=== PATIENT | male | born 1985 | race Caucasian/White ===

== ENCOUNTER 2022-03-28 20:37 | Inpatient (IN) | payer MEDICAID ==
[~2022-03-28] VITALS: Ht 180.3 cm; Wt 105.8 kg
[2022-03-28 21:14] LABS: BASOPHILS % (AUTO) 0.3 % (0.0-2.0); EOSINOPHILS % (AUTO) 1.1 % (1.0-6.0); HEMATOCRIT 38.5 % (41-53); HEMOGLOBIN 13.3 g/dL (13.5-17.5); LYMPHOCYTES # (AUTO) 1.5 K/uL (1.0-4.8); LYMPHOCYTES % (AUTO) 24.2 % (22.0-44.0); MEAN CORPUSCULAR HEMOGLOBIN 29.8 pg (26.0-34.0); MEAN CORPUSCULAR HGB CONC 34.5 G/dL (31.0-37.0); MEAN CORPUSCULAR VOLUME 86 fL (80-100); MONOCYTES # (AUTO) 0.3 K/uL (0.1-1.0); MONOCYTES % (AUTO) 5.3 % (2.0-9.0); NEUTROPHILS # (AUTO) 4.3 K/uL (1.8-7.7); NEUTROPHILS % (AUTO) 69.1 % (40.0-70.0); PLATELET COUNT (AUTO) 211 K/uL (150-450); RED BLOOD CELL COUNT(AUTO) 4.47 MIL/uL (4.50-5.90); RED CELL DISTRIBUTION WIDTH 13.5 % (11.5-14.5)
[2022-03-28 21:17] LABS: COVID AG,FIA SOURCE NASAL SWAB
[2022-03-28 21:24] LABS: ANION GAP 7 mmol/L (8-16); CALCIUM, TOTAL 8.5 mg/dL (8.8-10.5); CARBON DIOXIDE 32 mmol/L (22-29); CHLORIDE 106 mmol/L (98-107); CREATININE 0.99 mg/dL (0.60-1.30); GLOMERULAR FILTR. RATE CALC > 60 mL/min (>60); GLUCOSE,RANDOM 120 mg/dL (70-110); POTASSIUM 3.1 mmol/L (3.5-5.1); SODIUM SERUM 145 mmol/L (136-145); UREA NITROGEN, BLOOD 16 mg/dL (7-18)
[2022-03-28 21:30] LABS: ALANINE AMINOTRANSFERASE 99 U/L (12-78); ALBUMIN 3.5 g/dL (3.4-5.0); ALKALINE PHOSPHATASE 87 U/L (46-116); ASPARTATE AMINOTRANSFERASE 75 U/L (15-37); BILIRUBIN,TOTAL 0.5 mg/dL (0.1-1.0); TOTAL PROTEIN, SERUM 6.8 g/dL (6.4-8.2)
[2022-03-28] MEDS ORDERED: POTASSIUM CHLORIDE 20 MEQ ER TABLET PO ONE (22:15)
[2022-03-28] MEDS ORDERED: LORazepam 1 MG TABLET PO ONE (22:30)
[2022-03-29 03:15] VITALS: BP 128/67
[2022-03-29 08:07] VITALS: BP 120/66
[2022-03-29] MEDS: HALOPERIDOL 5 MG TABLET PO PRN ×2 (10:15→16:51)
[2022-03-29] MEDS: LORazepam 2 MG TABLET PO PRN ×2 (10:15→16:51)
[2022-03-29] MEDS ORDERED: LOPERAMIDE HCL 2 MG CAPSULE PO PRN (12:45)
[2022-03-29] MEDS ORDERED: MAGNESIUM HYDROXIDE SUSPENSION 30 ML UDCUP PO PRN (12:45)
[2022-03-29] MEDS ORDERED: ONDANSETRON HCL 4 MG TABLET PO PRN (12:45)
[2022-03-29] MEDS ORDERED: DOCUSATE SODIUM 100 MG CAPSULE PO PRN (12:45)
[2022-03-29] MEDS ORDERED: ACETAMINOPHEN 325 MG TABLET PO PRN (12:45)
[2022-03-29] MEDS ORDERED: CloNIDine HCL 0.1 MG TABLET PO PRN (12:45)
[2022-03-29] MEDS ORDERED: ALBUTEROL SULFATE HFA 90 MCG/PUFF 8 GM INHALER IH PRN (12:45)
[2022-03-29] MEDS ORDERED: MAG HYDROX/AL HYDROX/SIMETH ES 30 ML SUSPENSION UDCUP PO PRN (12:45)
[2022-03-29] MEDS ORDERED: GuaiFENesin/D-METHORPHAN [SUGAR-FREE] 200-20MG/10 ML SYRUP UDCUP PO PRN (12:45)
[2022-03-29] MEDS ORDERED: IBUPROFEN 400 MG TABLET PO PRN (12:45)
[2022-03-29] MEDS ORDERED: PETROLATUM,WHITE 28 GM JELLY TP PRN (12:45)
[2022-03-29 16:08] VITALS: BP 118/66
[2022-03-29] MEDS: OLANZapine 5 MG TABLET PO SCH (16:51)
[2022-03-30] MEDS: OLANZapine 5 MG TABLET PO SCH ×2 (08:09→16:26)
[2022-03-30] MEDS: LORazepam 2 MG TABLET PO PRN ×3 (08:09→20:31)
[2022-03-30 08:16] VITALS: BP 126/78
[2022-03-30 16:16] VITALS: BP 128/73
[2022-03-30] MEDS: NICOTINE 14 MG/24 HOUR PATCH TD PRN (17:56)
[2022-03-30] MEDS: ZOLPIDEM TARTRATE 10 MG TABLET PO PRN (20:31)
[2022-03-30] MEDS: HALOPERIDOL 5 MG TABLET PO PRN (21:59)
[2022-03-31 08:09] VITALS: BP 133/73
[2022-03-31] MEDS: OLANZapine 5 MG TABLET PO SCH ×2 (08:19→18:08)
[2022-03-31] MEDS: HALOPERIDOL 5 MG TABLET PO PRN ×2 (08:19→18:41)
[2022-03-31] MEDS: LORazepam 2 MG TABLET PO PRN ×3 (08:19→18:08)
[2022-03-31] MEDS: NICOTINE 14 MG/24 HOUR PATCH TD PRN (08:42)
[2022-03-31 16:11] VITALS: BP 130/76
[2022-04-01 04:57] VITALS: BP 114/64
[2022-04-01 08:06] VITALS: BP 133/80
[2022-04-01] MEDS: OLANZapine 5 MG TABLET PO SCH ×2 (08:16→16:31)
[2022-04-01] MEDS: HALOPERIDOL 5 MG TABLET PO PRN ×3 (08:16→19:12)
[2022-04-01] MEDS: LORazepam 2 MG TABLET PO PRN ×3 (08:16→19:12)
[2022-04-01 16:10] VITALS: BP 132/76
[2022-04-01] MEDS: ZOLPIDEM TARTRATE 10 MG TABLET PO PRN (20:14)
[2022-04-02] MEDS: HALOPERIDOL 5 MG TABLET PO PRN ×2 (08:15→18:08)
[2022-04-02] MEDS: OLANZapine 5 MG TABLET PO SCH ×2 (08:15→17:07)
[2022-04-02] MEDS: LORazepam 2 MG TABLET PO PRN ×2 (08:15→18:08)
[2022-04-02 08:28] VITALS: BP 114/70
[2022-04-02] MEDS ORDERED: HALOPERIDOL LACTATE 5 MG/ML VIAL ONE (14:26)
[2022-04-02] MEDS ORDERED: DiphenhydrAMINE HCL 50 MG/ML VIAL ONE (14:26)
[2022-04-02] MEDS ORDERED: LORazepam 2 MG/ML VIAL ONE (14:26)
[2022-04-02] MEDS ORDERED: DiphenhydrAMINE HCL 50 MG/ML VIAL IM ONE (14:30)
[2022-04-02] MEDS ORDERED: LORazepam 2 MG/ML VIAL IM ONE (14:30)
[2022-04-02] MEDS ORDERED: HALOPERIDOL LACTATE 5 MG/ML VIAL IM ONE (14:30)
[2022-04-02 16:07] VITALS: BP 140/88
[2022-04-02] MEDS: ZOLPIDEM TARTRATE 10 MG TABLET PO PRN (20:28)
[2022-04-03 08:10] VITALS: BP 136/79
[2022-04-03] MEDS: OLANZapine 5 MG TABLET PO SCH ×2 (08:47→16:50)
[2022-04-03] MEDS: LORazepam 2 MG TABLET PO PRN ×3 (08:48→23:44)
[2022-04-03] MEDS: HALOPERIDOL 5 MG TABLET PO PRN ×3 (11:35→23:44)
[2022-04-03] MEDS: NICOTINE 14 MG/24 HOUR PATCH TD PRN (11:35)
[2022-04-03] MEDS: NICOTINE 21 MG/24 HOUR PATCH TD SCH (14:52)
[2022-04-03 16:08] VITALS: BP 104/61
[2022-04-03] MEDS: ZOLPIDEM TARTRATE 10 MG TABLET PO PRN (20:06)
[2022-04-04 00:43] VITALS: BP 114/71
[2022-04-04 08:22] VITALS: BP 154/94
[2022-04-04] MEDS: HALOPERIDOL 5 MG TABLET PO PRN ×2 (08:23→16:42)
[2022-04-04] MEDS: NICOTINE 21 MG/24 HOUR PATCH TD SCH (08:23)
[2022-04-04] MEDS: OLANZapine 5 MG TABLET PO SCH ×2 (08:23→16:42)
[2022-04-04] MEDS: LORazepam 2 MG TABLET PO PRN ×2 (08:24→16:42)
[2022-04-04] MEDS ORDERED: DiphenhydrAMINE HCL 50 MG/ML VIAL IM ONE (11:30)
[2022-04-04] MEDS ORDERED: HALOPERIDOL LACTATE 5 MG/ML VIAL IM ONE (11:30)
[2022-04-04] MEDS ORDERED: DiphenhydrAMINE HCL 50 MG/ML VIAL ONE (11:30)
[2022-04-04] MEDS ORDERED: LORazepam 2 MG/ML VIAL ONE (11:30)
[2022-04-04] MEDS ORDERED: LORazepam 2 MG/ML VIAL IM ONE (11:30)
[2022-04-04] MEDS ORDERED: HALOPERIDOL LACTATE 5 MG/ML VIAL ONE (11:30)
[2022-04-04 13:26] VITALS: BP 113/75
[2022-04-04 15:56] VITALS: BP 122/69
[2022-04-04 17:54] VITALS: BP 122/69
[2022-04-05 08:12] VITALS: BP 128/68
[2022-04-05] MEDS: OLANZapine 5 MG TABLET PO SCH ×2 (08:16→16:01)
[2022-04-05] MEDS: NICOTINE 21 MG/24 HOUR PATCH TD SCH (08:16)
[2022-04-05] MEDS: HALOPERIDOL 5 MG TABLET PO PRN ×3 (08:16→20:13)
[2022-04-05] MEDS: LORazepam 2 MG TABLET PO PRN ×3 (08:16→20:13)
[2022-04-05 16:09] VITALS: BP 127/75
[2022-04-05] MEDS: ZOLPIDEM TARTRATE 10 MG TABLET PO PRN (20:13)
[2022-04-06 03:23] VITALS: BP 110/72
[2022-04-06 08:17] VITALS: BP 108/70
[2022-04-06] MEDS: OLANZapine 5 MG TABLET PO SCH ×2 (08:17→16:26)
[2022-04-06] MEDS: LORazepam 2 MG TABLET PO PRN ×2 (08:17→13:38)
[2022-04-06] MEDS: HALOPERIDOL 5 MG TABLET PO PRN ×2 (08:17→13:38)
[2022-04-06] MEDS: NICOTINE 21 MG/24 HOUR PATCH TD SCH (08:17)
[2022-04-06 16:14] VITALS: BP 117/62
[2022-04-06] MEDS ORDERED: HALOPERIDOL LACTATE 5 MG/ML VIAL IM ONE (18:15)
[2022-04-06] MEDS ORDERED: LORazepam 2 MG/ML VIAL IM ONE (18:15)
[2022-04-06] MEDS ORDERED: DiphenhydrAMINE HCL 50 MG/ML VIAL IM ONE (18:15)
[2022-04-06] MEDS: ZOLPIDEM TARTRATE 10 MG TABLET PO PRN (20:22)
[2022-04-06] MEDS: NICOTINE POLACRILEX 2 MG LOZENGE PO PRN (20:40)
[2022-04-07 06:18] VITALS: BP 128/72
[2022-04-07 08:21] VITALS: BP 118/74
[2022-04-07] MEDS: OLANZapine 5 MG TABLET PO SCH ×2 (08:41→16:14)
[2022-04-07] MEDS: NICOTINE POLACRILEX 2 MG LOZENGE PO PRN ×2 (12:29→16:14)
[2022-04-07] MEDS: LORazepam 2 MG TABLET PO PRN (13:42)
[2022-04-07 16:17] VITALS: BP 140/96
[2022-04-07] MEDS ORDERED: OLAN5TAB52 PO (17:11)
== END 2022-04-07 18:30 | disposition home or self-care (01) | DRG 750 ==
LOC: EMS 20:39 → B3A 03-29 01:48
PROVIDERS: ADMIT Psychiatry & Neurology Child & Adolescent Psychiatry; ATTEND Psychiatry & Neurology Child & Adolescent Psychiatry
DX: F20.0 Paranoid schizophrenia (principal); R45.851 Suicidal ideations; Z59.01 Sheltered homelessness; E87.6 Hypokalemia; F32.A Depression, unspecified; F41.9 Anxiety disorder, unspecified; R73.9 Hyperglycemia, unspecified; Z20.822 Contact with and (suspected) exposure to COVID-19; F17.210 Nicotine dependence, cigarettes, uncomplicated; D64.9 Anemia, unspecified
CPT/HCPCS: 80053; 85025; 99285; G0480; J1200; J1630; J2060; Q9967

== ENCOUNTER 2022-04-20 16:04 | Inpatient (IN) | payer MEDICAID ==
[~2022-04-20] VITALS: Ht 180.3 cm; Wt 109.4 kg
[~2022-04-20 16:04] MED LIST: OLAN5TAB52 PO
[2022-04-20] MEDS: LORazepam 2 MG TABLET PO PRN (20:47)
[2022-04-20] MEDS: ZOLPIDEM TARTRATE 10 MG TABLET PO PRN (20:47)
[2022-04-20 22:06] VITALS: BP 140/100
[2022-04-21 04:22] VITALS: BP 132/89
[2022-04-21] MEDS ORDERED: MAG HYDROX/AL HYDROX/SIMETH ES 30 ML SUSPENSION UDCUP PO PRN (06:45)
[2022-04-21] MEDS ORDERED: ONDANSETRON HCL 4 MG TABLET PO PRN (06:45)
[2022-04-21] MEDS ORDERED: GuaiFENesin/D-METHORPHAN [SUGAR-FREE] 200-20MG/10 ML SYRUP UDCUP PO PRN (06:45)
[2022-04-21] MEDS ORDERED: PETROLATUM,WHITE 28 GM JELLY TP PRN (06:45)
[2022-04-21] MEDS ORDERED: DOCUSATE SODIUM 100 MG CAPSULE PO PRN (06:45)
[2022-04-21] MEDS ORDERED: ACETAMINOPHEN 325 MG TABLET PO PRN (06:45)
[2022-04-21] MEDS ORDERED: ALBUTEROL SULFATE HFA 90 MCG/PUFF 8 GM INHALER IH PRN (06:45)
[2022-04-21] MEDS ORDERED: LOPERAMIDE HCL 2 MG CAPSULE PO PRN (06:45)
[2022-04-21] MEDS ORDERED: CloNIDine HCL 0.1 MG TABLET PO PRN (06:45)
[2022-04-21 08:20] VITALS: BP 111/60
[2022-04-21] MEDS: HALOPERIDOL 5 MG TABLET PO PRN (12:10)
[2022-04-21] MEDS: LORazepam 2 MG TABLET PO PRN ×2 (12:10→19:19)
[2022-04-21 16:30] VITALS: BP 146/75
[2022-04-21] MEDS: OLANZapine 5 MG TABLET PO SCH (19:19)
[2022-04-22 04:17] VITALS: BP 106/64
[2022-04-22 08:07] VITALS: BP 122/70
[2022-04-22] MEDS: OLANZapine 5 MG TABLET PO SCH ×2 (09:07→16:07)
[2022-04-22] MEDS: LORazepam 2 MG TABLET PO PRN ×2 (09:07→16:07)
[2022-04-22 16:05] VITALS: BP 130/82
[2022-04-22] MEDS: HALOPERIDOL 5 MG TABLET PO PRN (17:22)
[2022-04-22] MEDS: NICOTINE 14 MG/24 HOUR PATCH TD PRN (18:00)
[2022-04-23 05:50] VITALS: BP 126/81
[2022-04-23 08:15] VITALS: BP 128/80
[2022-04-23] MEDS: HALOPERIDOL 5 MG TABLET PO PRN ×3 (08:20→17:13)
[2022-04-23] MEDS: OLANZapine 5 MG TABLET PO SCH ×2 (08:20→16:13)
[2022-04-23] MEDS: LORazepam 2 MG TABLET PO PRN ×3 (08:20→17:13)
[2022-04-23] MEDS: NICOTINE 14 MG/24 HOUR PATCH TD PRN (12:58)
[2022-04-23] MEDS ORDERED: DiphenhydrAMINE HCL 50 MG/ML VIAL IM ONE (16:00)
[2022-04-23] MEDS ORDERED: ChlorproMAZINE HCL 50 MG/2 ML AMP IM ONE (16:00)
[2022-04-23 16:07] VITALS: BP 137/76
[2022-04-24] MEDS: OLANZapine 5 MG TABLET PO SCH ×2 (08:03→16:28)
[2022-04-24 08:18] VITALS: BP 115/68
[2022-04-24] MEDS: LORazepam 2 MG TABLET PO PRN ×2 (10:04→16:28)
[2022-04-24] MEDS: HALOPERIDOL 5 MG TABLET PO PRN (14:00)
[2022-04-24 16:02] VITALS: BP 128/82
[2022-04-24] MEDS: NICOTINE 14 MG/24 HOUR PATCH TD PRN (18:33)
[2022-04-24] MEDS ORDERED: LORazepam 2 MG/ML VIAL IM ONE (19:45)
[2022-04-24] MEDS ORDERED: ChlorproMAZINE HCL 50 MG/2 ML AMP IM ONE (19:45)
[2022-04-24] MEDS ORDERED: DiphenhydrAMINE HCL 50 MG/ML VIAL IM ONE (19:45)
[2022-04-24] MEDS: ZOLPIDEM TARTRATE 10 MG TABLET PO PRN (22:23)
[2022-04-25 03:30] VITALS: BP 139/96
[2022-04-25 08:03] VITALS: BP 123/88
[2022-04-25] MEDS: OLANZapine 5 MG TABLET PO SCH (09:10)
[2022-04-25] MEDS: LORazepam 2 MG TABLET PO PRN ×2 (09:11→15:16)
[2022-04-25] MEDS ORDERED: OLANZapine 5 MG RAPDIS TABLET PO ONE (09:45)
[2022-04-25] MEDS ORDERED: OLANZapine 10 MG TABLET PO SCH (09:45)
[2022-04-25] MEDS: SERTRALINE HCL 50 MG TABLET PO SCH (10:01)
[2022-04-25] MEDS: NICOTINE 14 MG/24 HOUR PATCH TD PRN (11:03)
[2022-04-25] MEDS: HALOPERIDOL 5 MG TABLET PO PRN (15:16)
[2022-04-25 16:22] VITALS: BP 133/88
[2022-04-25] MEDS: OLANZapine 10 MG TABLET PO SCH (20:44)
[2022-04-26 02:41] VITALS: BP 132/68
[2022-04-26 08:07] VITALS: BP 118/72
[2022-04-26] MEDS: SERTRALINE HCL 50 MG TABLET PO SCH (08:09)
[2022-04-26] MEDS: LORazepam 2 MG TABLET PO PRN ×2 (08:09→16:56)
[2022-04-26] MEDS: HALOPERIDOL 5 MG TABLET PO PRN ×2 (08:09→16:56)
[2022-04-26] MEDS: OLANZapine 10 MG TABLET PO SCH ×2 (08:10→16:56)
[2022-04-26 16:14] VITALS: BP 112/82
[2022-04-27 04:32] VITALS: BP 128/76
[2022-04-27 08:05] VITALS: BP 138/92
[2022-04-27] MEDS: LORazepam 2 MG TABLET PO PRN ×3 (08:15→22:09)
[2022-04-27] MEDS: HALOPERIDOL 5 MG TABLET PO PRN ×2 (08:15→16:07)
[2022-04-27] MEDS: OLANZapine 10 MG TABLET PO SCH ×2 (08:15→16:07)
[2022-04-27] MEDS: SERTRALINE HCL 50 MG TABLET PO SCH (08:15)
[2022-04-27] MEDS: NICOTINE 14 MG/24 HOUR PATCH TD PRN (09:27)
[2022-04-27] MEDS ORDERED: ChlorproMAZINE HCL 50 MG/2 ML AMP ONE (11:28)
[2022-04-27] MEDS ORDERED: DiphenhydrAMINE HCL 50 MG/ML VIAL ONE (11:28)
[2022-04-27] MEDS ORDERED: ChlorproMAZINE HCL 50 MG/2 ML AMP IM ONE (11:30)
[2022-04-27] MEDS ORDERED: DiphenhydrAMINE HCL 50 MG/ML VIAL IM ONE (11:30)
[2022-04-27 16:06] VITALS: BP 124/78
[2022-04-27] MEDS: NICOTINE POLACRILEX 2 MG LOZENGE PO PRN (19:40)
[2022-04-27] MEDS: ZOLPIDEM TARTRATE 10 MG TABLET PO PRN (20:36)
[2022-04-27 21:42] LABS: GLUCOMETER DEV NAME(LOC) POC.BV
[2022-04-28 06:00] VITALS: BP 118/70
[2022-04-28] MEDS: SERTRALINE HCL 50 MG TABLET PO SCH (08:28)
[2022-04-28] MEDS: HALOPERIDOL 5 MG TABLET PO PRN ×3 (08:28→20:14)
[2022-04-28] MEDS: LORazepam 2 MG TABLET PO PRN ×3 (08:28→20:15)
[2022-04-28] MEDS: OLANZapine 10 MG TABLET PO SCH ×2 (08:28→16:02)
[2022-04-28 09:03] VITALS: BP 110/61
[2022-04-28] MEDS: NICOTINE POLACRILEX 2 MG LOZENGE PO PRN (16:02)
[2022-04-28 16:03] VITALS: BP 129/85
[2022-04-28] MEDS: ZOLPIDEM TARTRATE 10 MG TABLET PO PRN (20:15)
[2022-04-29 06:49] VITALS: BP 124/78
[2022-04-29] MEDS: OLANZapine 10 MG TABLET PO SCH ×2 (08:32→16:16)
[2022-04-29] MEDS: SERTRALINE HCL 50 MG TABLET PO SCH (08:32)
[2022-04-29] MEDS: LORazepam 2 MG TABLET PO PRN ×3 (08:32→19:34)
[2022-04-29] MEDS: NICOTINE POLACRILEX 2 MG LOZENGE PO PRN ×2 (08:45→15:52)
[2022-04-29] MEDS: HALOPERIDOL 5 MG TABLET PO PRN ×2 (09:38→17:46)
[2022-04-29 16:16] VITALS: BP 140/89
[2022-04-29] MEDS: ZOLPIDEM TARTRATE 10 MG TABLET PO PRN (22:28)
[2022-04-30 05:12] VITALS: BP 103/64
[2022-04-30 08:02] VITALS: BP 133/62
[2022-04-30] MEDS: LORazepam 2 MG TABLET PO PRN ×2 (08:19→12:39)
[2022-04-30] MEDS: HALOPERIDOL 5 MG TABLET PO PRN ×2 (08:20→12:39)
[2022-04-30] MEDS: OLANZapine 10 MG TABLET PO SCH ×2 (08:20→16:12)
[2022-04-30] MEDS: SERTRALINE HCL 100 MG TABLET PO SCH (08:20)
[2022-04-30] MEDS ORDERED: HALOPERIDOL LACTATE 5 MG/ML VIAL IM ONE (13:30)
[2022-04-30] MEDS ORDERED: DiphenhydrAMINE HCL 50 MG/ML VIAL IM ONE (13:30)
[2022-04-30 16:04] VITALS: BP 127/75
[2022-04-30] MEDS: NICOTINE POLACRILEX 2 MG LOZENGE PO PRN (18:21)
[2022-04-30] MEDS: ZOLPIDEM TARTRATE 10 MG TABLET PO PRN (20:09)
[2022-05-01 06:23] VITALS: BP 131/82
[2022-05-01 07:12] LABS: BASOPHILS % (AUTO) 0.4 % (0.0-2.0); EOSINOPHILS % (AUTO) 1.7 % (1.0-6.0); HEMATOCRIT 42.4 % (41-53); HEMOGLOBIN 14.5 g/dL (13.5-17.5); LYMPHOCYTES # (AUTO) 1.9 K/uL (1.0-4.8); LYMPHOCYTES % (AUTO) 28.2 % (22.0-44.0); MEAN CORPUSCULAR HEMOGLOBIN 29.3 pg (26.0-34.0); MEAN CORPUSCULAR HGB CONC 34.1 G/dL (31.0-37.0); MEAN CORPUSCULAR VOLUME 86 fL (80-100); MONOCYTES # (AUTO) 0.5 K/uL (0.1-1.0); MONOCYTES % (AUTO) 7.2 % (2.0-9.0); NEUTROPHILS # (AUTO) 4.3 K/uL (1.8-7.7); NEUTROPHILS % (AUTO) 62.5 % (40.0-70.0); PLATELET COUNT (AUTO) 241 K/uL (150-450); RED BLOOD CELL COUNT(AUTO) 4.93 MIL/uL (4.50-5.90); RED CELL DISTRIBUTION WIDTH 13.4 % (11.5-14.5)
[2022-05-01 08:01] VITALS: BP 131/74
[2022-05-01] MEDS: HALOPERIDOL 5 MG TABLET PO PRN ×2 (08:07→17:13)
[2022-05-01] MEDS: OLANZapine 10 MG TABLET PO SCH ×2 (08:07→16:03)
[2022-05-01] MEDS: SERTRALINE HCL 100 MG TABLET PO SCH (08:07)
[2022-05-01] MEDS: LORazepam 2 MG TABLET PO PRN ×3 (08:07→18:29)
[2022-05-01] MEDS: NICOTINE POLACRILEX 2 MG LOZENGE PO PRN ×2 (10:24→19:11)
[2022-05-01 16:01] VITALS: BP 137/80
[2022-05-01] MEDS: ZOLPIDEM TARTRATE 10 MG TABLET PO PRN (21:55)
[2022-05-02 04:09] VITALS: BP 134/76
[2022-05-02 08:05] VITALS: BP 122/73
[2022-05-02] MEDS: OLANZapine 10 MG TABLET PO SCH ×2 (09:14→16:06)
[2022-05-02] MEDS: LORazepam 2 MG TABLET PO PRN ×2 (09:15→13:55)
[2022-05-02] MEDS: HALOPERIDOL 5 MG TABLET PO PRN ×2 (09:15→16:06)
[2022-05-02] MEDS: SERTRALINE HCL 100 MG TABLET PO SCH (09:16)
[2022-05-02] MEDS: NICOTINE POLACRILEX 2 MG LOZENGE PO PRN ×2 (10:53→17:11)
[2022-05-02 16:02] VITALS: BP 139/87
[2022-05-02] MEDS: ZOLPIDEM TARTRATE 10 MG TABLET PO PRN (20:27)
[2022-05-03 04:03] VITALS: BP 138/79
[2022-05-03] MEDS: OLANZapine 10 MG TABLET PO SCH ×2 (08:11→16:08)
[2022-05-03] MEDS: LORazepam 2 MG TABLET PO PRN (08:11)
[2022-05-03] MEDS: HALOPERIDOL 5 MG TABLET PO PRN ×4 (08:11→20:35)
[2022-05-03] MEDS: SERTRALINE HCL 100 MG TABLET PO SCH (08:11)
[2022-05-03 08:13] VITALS: BP 141/84
[2022-05-03] MEDS: NICOTINE POLACRILEX 2 MG LOZENGE PO PRN (12:32)
[2022-05-03] MEDS: HydrOXYzine PAMOATE 50 MG CAPSULE PO PRN ×2 (14:11→21:54)
[2022-05-03 16:20] VITALS: BP 130/83
[2022-05-03] MEDS: ZOLPIDEM TARTRATE 10 MG TABLET PO PRN (20:18)
[2022-05-04 03:58] VITALS: BP 136/87
[2022-05-04] MEDS: HydrOXYzine PAMOATE 50 MG CAPSULE PO PRN ×3 (06:58→19:16)
[2022-05-04] MEDS: HALOPERIDOL 5 MG TABLET PO PRN ×3 (06:58→19:16)
[2022-05-04 08:04] VITALS: BP 130/79
[2022-05-04] MEDS: SERTRALINE HCL 100 MG TABLET PO SCH (08:12)
[2022-05-04] MEDS: OLANZapine 10 MG TABLET PO SCH ×2 (08:12→16:00)
[2022-05-04 16:28] VITALS: BP 140/92
[2022-05-04] MEDS: NICOTINE POLACRILEX 2 MG LOZENGE PO PRN (17:31)
[2022-05-04] MEDS: ZOLPIDEM TARTRATE 10 MG TABLET PO PRN (20:44)
[2022-05-05 00:44] VITALS: BP 136/87
[2022-05-05] MEDS: SERTRALINE HCL 100 MG TABLET PO SCH (08:02)
[2022-05-05] MEDS: OLANZapine 10 MG TABLET PO SCH ×2 (08:02→16:11)
[2022-05-05 08:17] VITALS: BP 129/82
[2022-05-05] MEDS: HydrOXYzine PAMOATE 50 MG CAPSULE PO PRN ×3 (09:10→17:12)
[2022-05-05] MEDS: HALOPERIDOL 5 MG TABLET PO PRN ×3 (09:10→17:12)
[2022-05-05] MEDS: HYDROCORTISONE 1% 30 GM OINTMENT TP SCH (13:04)
[2022-05-05] MEDS: NICOTINE POLACRILEX 2 MG LOZENGE PO PRN (13:12)
[2022-05-05 16:04] VITALS: BP 140/85
[2022-05-05] MEDS: ZOLPIDEM TARTRATE 10 MG TABLET PO PRN (20:22)
[2022-05-06 03:39] VITALS: BP 134/81
[2022-05-06 08:11] VITALS: BP 153/82
[2022-05-06] MEDS: SERTRALINE HCL 100 MG TABLET PO SCH (08:31)
[2022-05-06] MEDS: HYDROCORTISONE 1% 30 GM OINTMENT TP SCH (08:32)
[2022-05-06] MEDS: HydrOXYzine PAMOATE 50 MG CAPSULE PO PRN ×2 (08:32→17:13)
[2022-05-06] MEDS: OLANZapine 10 MG TABLET PO SCH ×2 (08:59→17:00)
[2022-05-06] MEDS ORDERED: FUROSEMIDE 20 MG TABLET PO ONE (11:30)
[2022-05-06 16:44] VITALS: BP 134/78
[2022-05-06] MEDS: HALOPERIDOL 5 MG TABLET PO PRN (17:13)
[2022-05-06 19:01] VITALS: BP 162/98
[2022-05-06] MEDS: MAGNESIUM HYDROXIDE SUSPENSION 30 ML UDCUP PO PRN (19:24)
[2022-05-07 04:02] VITALS: BP 118/68
[2022-05-07] MEDS: OLANZapine 10 MG TABLET PO SCH ×2 (08:41→17:00)
[2022-05-07] MEDS: SERTRALINE HCL 100 MG TABLET PO SCH (08:41)
[2022-05-07] MEDS: HYDROCORTISONE 1% 30 GM OINTMENT TP SCH (08:45)
[2022-05-07 09:06] LABS: GLUCOMETER DEV NAME(LOC) POC.BV
[2022-05-07] MEDS: HydrOXYzine PAMOATE 50 MG CAPSULE PO PRN (10:05)
[2022-05-07 10:32] VITALS: BP 143/75
[2022-05-07] MEDS: NICOTINE POLACRILEX 2 MG LOZENGE PO PRN (16:05)
[2022-05-07 16:18] VITALS: BP 155/86
[2022-05-07] MEDS: IBUPROFEN 400 MG TABLET PO PRN (20:16)
[2022-05-07 20:23] VITALS: BP 143/85
[2022-05-07 21:16] VITALS: BP 138/82
[2022-05-08 00:32] VITALS: BP 148/81
[2022-05-08] MEDS: MAGNESIUM HYDROXIDE SUSPENSION 30 ML UDCUP PO PRN (07:12)
[2022-05-08 08:25] VITALS: BP 142/84
[2022-05-08] MEDS: SERTRALINE HCL 100 MG TABLET PO SCH (09:00)
[2022-05-08] MEDS: HYDROCORTISONE 1% 30 GM OINTMENT TP SCH (09:00)
[2022-05-08] MEDS: OLANZapine 10 MG TABLET PO SCH ×2 (09:00→16:35)
[2022-05-08] MEDS: NICOTINE POLACRILEX 2 MG LOZENGE PO PRN ×2 (13:23→19:26)
[2022-05-08 16:15] VITALS: BP 138/72
[2022-05-08] MEDS: ZOLPIDEM TARTRATE 10 MG TABLET PO PRN (23:46)
[2022-05-09 00:28] VITALS: BP 149/96
[2022-05-09 08:25] VITALS: BP 142/89
[2022-05-09] MEDS: SERTRALINE HCL 50 MG TABLET PO SCH (09:00)
[2022-05-09] MEDS: HYDROCORTISONE 1% 30 GM OINTMENT TP SCH (09:00)
[2022-05-09] MEDS: OLANZapine 10 MG TABLET PO SCH ×2 (09:00→17:00)
[2022-05-09] MEDS: IBUPROFEN 400 MG TABLET PO PRN (13:17)
[2022-05-09] MEDS: NICOTINE POLACRILEX 2 MG LOZENGE PO PRN ×2 (14:28→21:33)
[2022-05-09 16:22] VITALS: BP 140/83
[2022-05-09] MEDS: HydrOXYzine PAMOATE 50 MG CAPSULE PO PRN (16:39)
[2022-05-09] MEDS ORDERED: LORazepam 2 MG/ML VIAL IM ONE (20:30)
[2022-05-09] MEDS ORDERED: DiphenhydrAMINE HCL 50 MG/ML VIAL IM ONE (20:30)
[2022-05-09] MEDS ORDERED: HALOPERIDOL LACTATE 5 MG/ML VIAL IM ONE (20:30)
[2022-05-10 05:21] VITALS: BP 119/68
[2022-05-10] MEDS: HYDROCORTISONE 1% 30 GM OINTMENT TP SCH (09:00)
[2022-05-10] MEDS: SERTRALINE HCL 50 MG TABLET PO SCH (09:00)
[2022-05-10] MEDS: OLANZapine 10 MG TABLET PO SCH ×2 (10:01→16:39)
[2022-05-10 10:04] VITALS: BP 128/73
[2022-05-10] MEDS: NICOTINE POLACRILEX 2 MG LOZENGE PO PRN ×2 (12:38→19:20)
[2022-05-10 16:23] VITALS: BP 126/76
[2022-05-10] MEDS: ZOLPIDEM TARTRATE 10 MG TABLET PO PRN (22:46)
[2022-05-11 03:31] VITALS: BP 150/96
[2022-05-11] MEDS: OLANZapine 10 MG TABLET PO SCH ×2 (08:42→16:08)
[2022-05-11] MEDS: HYDROCORTISONE 1% 30 GM OINTMENT TP SCH (08:42)
[2022-05-11] MEDS: SERTRALINE HCL 50 MG TABLET PO SCH ×2 (08:42→09:00)
[2022-05-11] MEDS: NICOTINE POLACRILEX 2 MG LOZENGE PO PRN (16:08)
[2022-05-11] MEDS: HydrOXYzine PAMOATE 50 MG CAPSULE PO PRN ×2 (16:09→16:11)
[2022-05-11 16:23] VITALS: BP 132/87
[2022-05-11] MEDS: IBUPROFEN 400 MG TABLET PO PRN (19:31)
[2022-05-11] MEDS: ZOLPIDEM TARTRATE 10 MG TABLET PO PRN (21:32)
[2022-05-12 05:37] VITALS: BP 128/86
[2022-05-12] MEDS: OLANZapine 10 MG TABLET PO SCH ×2 (08:46→16:04)
[2022-05-12] MEDS: HYDROCORTISONE 1% 30 GM OINTMENT TP SCH (08:46)
[2022-05-12] MEDS: SERTRALINE HCL 50 MG TABLET PO SCH (08:46)
[2022-05-12] MEDS: NICOTINE POLACRILEX 2 MG LOZENGE PO PRN ×2 (10:25→16:59)
[2022-05-12 16:13] VITALS: BP 146/84
[2022-05-12] MEDS: ZOLPIDEM TARTRATE 10 MG TABLET PO PRN (20:11)
[2022-05-12] MEDS: IBUPROFEN 400 MG TABLET PO PRN (20:14)
[2022-05-13] MEDS: NICOTINE POLACRILEX 2 MG LOZENGE PO PRN ×2 (02:18→18:09)
[2022-05-13 03:46] VITALS: BP 139/93
[2022-05-13] MEDS: SERTRALINE HCL 50 MG TABLET PO SCH (08:34)
[2022-05-13] MEDS: OLANZapine 10 MG TABLET PO SCH ×2 (08:34→16:18)
[2022-05-13] MEDS: HYDROCORTISONE 1% 30 GM OINTMENT TP SCH (08:34)
[2022-05-13] MEDS: MAGNESIUM HYDROXIDE SUSPENSION 30 ML UDCUP PO PRN (09:39)
[2022-05-13 17:16] VITALS: BP 146/92
[2022-05-13] MEDS: ZOLPIDEM TARTRATE 10 MG TABLET PO PRN (21:03)
[2022-05-14 06:11] VITALS: BP 127/82
[2022-05-14] MEDS ORDERED: SERT-158 PO ×2 (08:10→09:18)
[2022-05-14] MEDS ORDERED: OLAN10TA74 PO ×2 (08:10→09:18)
[2022-05-14] MEDS: OLANZapine 10 MG TABLET PO SCH (08:26)
[2022-05-14] MEDS: SERTRALINE HCL 50 MG TABLET PO SCH (08:26)
[2022-05-14 08:29] VITALS: BP 137/80
[2022-05-14] MEDS: HYDROCORTISONE 1% 30 GM OINTMENT TP SCH (09:14)
== END 2022-05-14 13:30 | disposition home or self-care (01) | DRG 750 ==
LOC: B3A 19:16
PROVIDERS: ADMIT Psychiatry & Neurology Child & Adolescent Psychiatry; ATTEND Psychiatry & Neurology Child & Adolescent Psychiatry
DX: F20.9 Schizophrenia, unspecified (principal); Z59.00 Homelessness unspecified; D64.9 Anemia, unspecified; F19.10 Other psychoactive substance abuse, uncomplicated; F15.10 Other stimulant abuse, uncomplicated; Z20.822 Contact with and (suspected) exposure to COVID-19; Z91.19 Patient's noncompliance with other medical treatment and regimen
CPT/HCPCS: 85025; 87081; J1200; J1630; J2060; J3230; Q9967